=== PATIENT | female | born 1965 | race Caucasian/White ===

== ENCOUNTER 2020-04-22 10:48 | Observation (INO) | payer BC ==
[2020-04-22] MEDS ORDERED: METOCLOPRAMIDE HCL INJECTION 10 MG/2 ML VIAL IVPUSH ONE (11:08)
[2020-04-22] MEDS ORDERED: SODIUM CHLORIDE 0.9% 1000 ML INFUS.BAG IV ONE (11:08)
[2020-04-22] MEDS ORDERED: ACETAMINOPHEN 1000 MG/100 ML VIAL (NON FORMULARY) IVPB ONE (11:09)
[2020-04-22] MEDS ORDERED: DIPHTH,PERTUSS(ACELL),TET 0.5 ML DISP.SYRIN IM ONE (11:09)
--- NOTE | 2020-04-22 11:10 | PDOC ---
History of Present Illness - General Chief Complaint: Syncope/Near Syncope Stated Complaint: SYNCOPE, HEAD INJURY Time Seen by Provider: 04/22/20 10:50 - History of Present Illness Initial Comments: 04/22/20 11:10 54yo female with no pmhx and pshx of foot sx presents for eval of 2 syncopal episodes this am. Pt states she was in [place] this weekend and was in the sun all day yesterday. States she forgot her water bottle and wasn't drinking water all day. Pt also states she got sun [place] yesterday while at the beach. States s he felt fine last night, ate dinner and drank water. States this AM she was standing on the deck talking with her boyfriends son when she felt lightheaded and started to "see stars" and then passed out hitting her head on the metal railing of the deck. Per the son, who spoke with the nurse, she awoke after passing out and then again passed out in a chair - each episode was about 10-15 seconds. Pt denies cp/sob or palpitations prior to passing out or since. States she feels nauseated now. Denies meléndez. No neck pain. No blurred vision. No recent abd pain. No n/v/d. NO leg swelling. No urinary complaints. Pt traveled on April 12 from [place] to visit her boyfriend. Denies covid symptoms prior to travel or since arriving in [place]. No other complaints. Past History - Medical History Allergies/Adverse Reactions: Allergies Allergy/AdvReac Type Severity Reaction Status Date / Time No Known Allergies Allergy Verified 04/22/20 10:49 Home Medications: Ambulatory Orders NK [No Known Home Medication] 04/22/20 COPD: No Other medical history: denies - Psycho-Social/Smoking History Smoking History: Never smoked Have you smoked in the past 12 months: No Information on smoking cessation initiated: No - Substance Abuse Hx (Audit-C & DAST Scrn) How often the patient has a drink containing alcohol: Never Score: In Men: 4 or > Positive; In Women: 3 or > Positive: 0 Screen Result (Pos requires Nsg. Audit-10AR): Negative In the last yr the pt used illegal drug/Rx for NonMed reason: No Score: Yes response is considered Positive: 0 Screen Result (Positive result requires Nsg. DAST-10): Negative Review of Systems - Review of Systems Able to Perform ROS?: Yes Is the patient limited Lithuanian proficient: No Constitutional: No: Chills, Fever HEENTM: No: Eye Pain, Nose Congestion, Throat Pain, Mouth Swelling Respiratory: No: Cough, Shortness of Breath Cardiac (ROS): Yes: Lightheadedness, Syncope. No: Chest Pain, Edema, Palpitations ABD/GI: Yes: Nausea. No: Diarrhea, Vomiting, Abdominal cramping : No: Burning, Dysuria Musculoskeletal: No: Back Pain, Neck Pain Integumentary: Yes: Other (scalp lac) Neurological: Yes: Headache. No: Numbness, Paresthesia, Tingling, Ataxia All Other Systems: Reviewed and Negative *Physical Exam - Vital Signs Last Vital Signs Temp Pulse Resp BP Pulse Ox 97.6 F 75 18 127/63 99 04/22/20 10:48 04/22/20 10:48 04/22/20 10:48 04/22/20 10:48 04/22/20 10:48 - Physical Exam General Appearance: Yes: Nourished, Appropriately Dressed. No: Apparent Distress HEENT: positive: EOMI, MARGARITA, Normal Voice, TMs Normal, Pharynx Normal, Other (no septal hematoma or hemotypanium). negative: Pharyngeal Erythema, Tonsillar Exudate, Tonsillar Erythema, Nasal Congestion, Rhinorrhea Neck: positive: Supple. negative: Trachea midline, Decreased range of motion, Tender lateral, Tender midline Respiratory/Chest: positive: Lungs Clear, Normal Breath Sounds. negative: Chest Tender, Respiratory Distress Cardiovascular: positive: Regular Rhythm, Regular Rate, S1, S2. negative: Edema Gastrointestinal/Abdominal: positive: Soft. negative: Guarding, Rebound, Tenderness Musculoskeletal: positive: Normal Inspection, Other (small abrasion to back, no midline ttp, no stepoffs or deformities). negative: Decreased Range of Motion, Vertebral Tenderness Extremity: positive: Normal Capillary Refill, Normal Inspection. 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, Fully Oriented, Alert, Normal Mood/Affect, Normal Response, Motor Strength 5/5 Procedures - Laceration/Wound Repair Posterior Occipital Wound Length: to 2.5 cm Wound Explored: clean Wound's Depth, Shape: superficial Irrigated w/ Saline: Yes Wound Repaired With: Ulysses Number of Sutures: 1 Layer Closure: No Sterile Dressing Applied: Yes Progress: 04/22/20 12:59 pt tolerated the procedure well Heart Score/ECG Review - ECG Intrepretation Comment:: 04/22/20 11:59 sinus at 71, freq pvc, no acute st/t wave findings, nl axis, nl interval, trigeminy ED Treatment Course - LABORATORY CBC & Chemistry Diagram: 04/22/20 11:10 04/22/20 11:10 - RADIOLOGY Radiology Studies Ordered: Category Date Time Status HEAD CT WITHOUT CONTRAST [CT] Stat CT Scan 04/22/20 11:07 Ordered CHEST X-RAY PORTABLE* [RAD] Stat Radiology 04/22/20 11:07 Ordered Medical Decision Making - Medical Decision Making 04/22/20 11:59 a/p: 54yo female with no pmhx with 2 syncopal episodes today -suspect dehydration from sun exposure over the weekend -no cardiac complaints -closed head injury, no anticoags, but scalp lac, will send for head ct -will send labs, orthostatics, ekg -will monitor on tele 04/22/20 12:[address] neg labs reviewed, electrolytes and blood counts stable, trop neg ekg in trigeminy 04/22/20 12:02 prelim read cxr clear pt denies pleuritic cp or leg swelling, calf cramping 04/22/20 12:32 discussed labs and imaging results discussed trigeminy and syncope recommend obs overnight for syncope workup, tele monitoring and cards eval 04/22/20 12:33 pt states she is feeling better at this time 04/22/20 12:57 pt willing to stay for obs for syncope, will send covid microblog sent to [facility] lac repaired with 1 staple after being washed out, pt tolerated the procedure well, will apply dressing 04/22/20 13:19 case discussed with YOVANI Bartlett who accepts pt to service requests consult to Dr. Anthony peoples Discharge - Discharge Information Problems reviewed: Yes Clinical Impression/Diagnosis: Syncope, Trigeminy, Occipital scalp laceration Condition: Guarded - Admission Yes - Follow up/Referral - Patient Discharge Instructions - Post Discharge Activity
[2020-04-22 11:29] LABS: BASO % 0.8 % (0-2.0); EOS % 1.1 % (0-4.5); HEMATOCRIT 41.4 % (32.4-45.2); HEMOGLOBIN 14.2 GM/dl (10.7-15.3); LYMPH % 27.9 % (8-40); MCH 30.4 pg (25.7-33.7); MCHC 34.4 g/dl (32.0-36.0); MEAN CELL VOLUME 88.4 fl (80-96); MEAN PLT VOLUME 8.9 fl (7.5-11.1); MONO % 8.2 % (3.8-10.2); PLATELET COUNT 223 K/MM3 (134-434); RBC 4.68 M/mm3 (3.60-5.2); RDW 12.6 % (11.6-15.6)
[2020-04-22 11:37] LABS: ACTIVATED PTT 24.4 SECONDS (25.2-36.5)
[2020-04-22 11:39] LABS: ALBUMIN 4.3 g/dl (3.4-5.0); BILIRUBIN,TOTAL 1.1 mg/dl (0.2-1); CALCIUM 9.6 mg/dl (8.5-10); CREATININE 0.9 mg/dl (0.55-1.3); TOT PROT 6.9 g/dl (6.4-8.2)
[2020-04-22 11:41] LABS: INR 1.11 (0.82-1.09); PROTHROMBIN TIME (PATIENT) 12.4 SEC (10.2-13.0)
--- NOTE | 2020-04-22 12:10 | EKG ---
Test Reason : Blood Pressure : / mmHG Vent. Rate : 071 BPM Atrial Rate : 071 BPM P-R Int : 134 ms QRS Dur : 086 ms QT Int : 414 ms P-R-T Axes : 038 060 071 degrees QTc Int : 449 ms SINUS RHYTHM WITH FREQUENT PREMATURE VENTRICULAR COMPLEXES OTHERWISE NORMAL ECG NO PREVIOUS ECGS AVAILABLE Confirmed by Mitesh Pa ([id number]) on 04/22/2020 12:10:21 PM Referred By: MD PRINGLE Confirmed By:Mitesh Pa
--- NOTE | 2020-04-22 14:18 | CON.CARD ---
Cardiology Consult (text) - Consultation Consultation Note: cc: syncope hpi: 54 f no pmhx here with syncope. No hx hrt dz or syncope. Very active, exercises often w/o anginal sxs or dizziness. Over weekend was at beach in sun for long time, didn't drink much fluids, had a sunburn as well. This AM was standing outside on patio and felt lightheaded and had witnessed LOC for about 15 secs. Was brought to a chair and had another similar episode. No other sxs. No cp sob palps pnd orthopnea le edema. Feels well now. pmh: per hpi psh: none social: no tob fam: no premature cad, scd ros: per hpi; all others nl meds: none pe: Vital Signs Period Temp Pulse Resp BP Sys/Vaughan Pulse Ox Last 24 Hr 97.6 F 74-84 18-18 123-141/54-81 99-99 nad no jvd rrr s1s2 no mrg cta bl nl eff aao3 no le e/c/c abd nt nd pos bs no jaundice diaphoresis pos dp pt no carotid bruits Laboratory Last Values WBC 6.0 K/mm3 (4.0-10.8) 04/22/20 11:10 RBC 4.68 M/mm3 (3.60-5.2) 04/22/20 11:10 Hgb 14.2 GM/dl (10.7-15.3) 04/22/20 11:10 Hct 41.4 % (32.4-45.2) 04/22/20 11:10 MCV 88.4 fl (80-96) 04/22/20 11:10 MCH 30.4 pg (25.7-33.7) 04/22/20 11:10 MCHC 34.4 g/dl (32.0-36.0) 04/22/20 11:10 RDW 12.6 % (11.6-15.6) 04/22/20 11:10 Plt Count 223 K/MM3 (134-434) 04/22/20 11:10 MPV 8.9 fl (7.5-11.1) 04/22/20 11:10 Absolute Neuts (auto) 3.7 K/mm3 04/22/20 11:10 Neutrophils % 62.0 % (42.8-82.8) 04/22/20 11:10 Lymphocytes % 27.9 % (8-40) 04/22/20 11:10 Monocytes % 8.2 % (3.8-10.2) 04/22/20 11:10 Eosinophils % 1.1 % (0-4.5) 04/22/20 11:10 Basophils % 0.8 % (0-2.0) 04/22/20 11:10 PT with INR 12.4 SEC (10.2-13.0) 04/22/20 11:10 INR 1.11 (0.82-1.09) 04/22/20 11:10 PTT (Actin FS) 24.4 SECONDS (25.2-36.5) L 04/22/20 11:10 Sodium 141 mmol/L (136-145) 04/22/20 11:10 Potassium 4.0 mmol/L (3.5-5.1) 04/22/20 11:10 Chloride 103 mmol/L (98-107) 04/22/20 11:10 Carbon Dioxide 26 mmol/L (21-32) 04/22/20 11:10 Anion Gap 12 MMOL/L (8-16) 04/22/20 11:10 BUN 18.0 mg/dl (7-18) 04/22/20 11:10 Creatinine 0.9 mg/dl (0.55-1.3) 04/22/20 11:10 Est GFR (CKD-EPI)AfAm 82.84 04/22/20 11:10 Est GFR (CKD-EPI)NonAf 71.48 04/22/20 11:10 Random Glucose 118 mg/dl (74-106) H 04/22/20 11:10 Calcium 9.6 mg/dl (8.5-10) 04/22/20 11:10 Total Bilirubin 1.1 mg/dl (0.2-1) H 04/22/20 11:10 AST 24 U/L (15-37) 04/22/20 11:10 ALT 20 U/L (13-61) 04/22/20 11:10 Alkaline Phosphatase 72 U/L (45-117) 04/22/20 11:10 Creatine Kinase 62 U/L (26-192) 04/22/20 11:10 Troponin I < 0.03 ng/ml (0.00-0.05) 04/22/20 11:10 Total Protein 6.9 g/dl (6.4-8.2) 04/22/20 11:10 Albumin 4.3 g/dl (3.4-5.0) 04/22/20 11:10 ecg: sr nl intervals no ischemic changes, occ isolated pvcs cxr: clear lungs tele: sr, occ isolated pvcs a/p: 54 f no pmhx here with syncope. syncope: -likely vasovagal -no signs acs, chf, arrhythmia -ecg/tele with sr, pvcs, likely benign -would monitor on tele 24 hrs, check echo, check ortho vitals, finish janice. if all benign and no recurrence then would be ok for dc from cardiac pov with outpt f/u.
[2020-04-22 15:23] VITALS: BMI 22.3
--- NOTE | 2020-04-22 15:31 | HP ---
CHIEF COMPLAINT: Syncope x 2 PCP: Dr. Silvana Franklin [phone] HISTORY OF PRESENT ILLNESS: 54 year-old female with no significant PMH, presents for eval of 2 syncopal episodes this am. Pt states she was in [place] this weekend and was in the sun all day yesterday. States she forgot her water bottle and wasn't drinking water all day. Pt also states she got sun burned yesterday while at the beach. States she felt fine last night, ate dinner and drank water. States this AM she was standing on the deck talking with her boyfriends son when she felt lightheaded and started to "see stars" and then passed out hitting her head on the metal railing of the deck. Per the son, who spoke with the nurse, she awoke after passing out and then again passed out in a chair - each episode was about 10-15 seconds. Pt denies cp/sob or palpitations prior to passing out or since. States she feels nauseated now. Denies meléndez. No neck pain. No blurred vision. No recent abd pain. No n/v/d. NO leg swelling. No urinary complaints. Pt traveled on April 12 from [place] to visit her boyfriend. Denies covid symptoms prior to travel or since arriving in [place]. No other complaints. ER course was notable for: (1) Head laceration repair 1 staple Recent Travel: Arrived in [place] from [place] on 04/12/20 to visit boyfriend PAST MEDICAL HISTORY: PAST SURGICAL HISTORY: Foot surgery Social History: lives in [place], exercises frequently Smoking: never Alcohol: Drugs: Allergies No Known Allergies Allergy (Verified 04/22/20 10:49) HOME MEDICATIONS: Home Medications Medication Instructions Recorded NK [No Known Home Medication] 04/22/20 REVIEW OF SYSTEMS CONSTITUTIONAL: Absent: fever, chills, diaphoresis, generalized weakness, malaise, loss of appetite, weight change HEENT: Absent: rhinorrhea, nasal congestion, throat pain, throat swelling, difficulty swallowing, mouth swelling, ear pain, eye pain, visual changes CARDIOVASCULAR: Absent: chest pain, syncope, palpitations, irregular heart rate, lightheadedness, peripheral edema RESPIRATORY: Absent: cough, shortness of breath, dyspnea with exertion, orthopnea, wheezing, stridor, hemoptysis GASTROINTESTINAL: Absent: abdominal pain, abdominal distension, nausea, vomiting, diarrhea, constipation, melena, hematochezia GENITOURINARY: Absent: dysuria, frequency, urgency, hesitancy, hematuria, flank pain, genital pain MUSCULOSKELETAL: Absent: myalgia, arthralgia, joint swelling, back pain, neck pain SKIN: Absent: rash, itching, pallor HEMATOLOGIC/IMMUNOLOGIC: Absent: easy bleeding, easy bruising, lymphadenopathy, frequent infections ENDOCRINE: Absent: unexplained weight gain, unexplained weight loss, heat intolerance, cold intolerance NEUROLOGIC: Absent: headache, focal weakness or paresthesias, dizziness, unsteady gait, seizure, mental status changes, bladder or bowel incontinence PSYCHIATRIC: Absent: anxiety, depression, suicidal or homicidal ideation, hallucinations. PHYSICAL EXAMINATION Vital Signs - 24 hr 04/22/20 04/22/20 04/22/20 10:48 11:05 11:10 Temperature 97.6 F Pulse Rate 75 Pulse Rate [ Left Apical] Pulse Rate [ 74 Sitting] Pulse Rate [ 84 Standing] Respiratory 18 Rate Blood Pressure 127/63 Blood Pressure [Right Arm] Blood Pressure 123/78 [Sitting] Blood Pressure 141/81 [Standing] O2 Sat by Pulse 99 Oximetry (%) 04/22/20 04/22/20 04/22/20 13:01 14:40 15:07 Temperature 97.8 F 97.8 F Pulse Rate 65 Pulse Rate [ 77 73 Left Apical] Pulse Rate [ Sitting] Pulse Rate [ Standing] Respiratory 18 18 18 Rate Blood Pressure 111/50 L Blood Pressure 126/54 L 127/71 [Right Arm] Blood Pressure [Sitting] Blood Pressure [Standing] O2 Sat by Pulse 99 98 Oximetry (%) GENERAL: Awake, alert, and fully oriented, in no acute distress. HEAD: Small lac posterior scalp, 1 staple closure, no bleeding EYES: Pupils equal, round and reactive to light, extraocular movements intact, sclera anicteric, conjunctiva clear. No lid lag. LUNGS: Breath sounds equal, clear to auscultation bilaterally. No wheezes, and no crackles. No accessory muscle use. HEART: Regular rate and rhythm, normal ABDOMEN: Soft, nontender, not distended UPPER EXTREMITIES: 2+ pulses, warm, well-perfused. No cyanosis. No clubbing. No peripheral edema. LOWER EXTREMITIES: 2+ pulses, warm, well-perfused. No calf tenderness. No peripheral edema. NEUROLOGICAL: Cranial nerves II-XII intact. Normal speech. Normal gait. PSYCHIATRIC: Cooperative. Good eye contact. Appropriate mood and affect. SKIN: Mild sunburn on shoulders and legs Laboratory Results - last 24 hr 04/22/20 04/22/20 04/22/20 11:10 11:10 11:10 WBC 6.0 RBC 4.68 Hgb 14.2 Hct 41.4 MCV 88.4 MCH 30.4 MCHC 34.4 RDW 12.6 Plt Count 223 MPV 8.9 Absolute Neuts (auto) 3.7 Neutrophils % 62.0 Lymphocytes % 27.9 Monocytes % 8.2 Eosinophils % 1.1 Basophils % 0.8 PT with INR 12.4 INR 1.11 PTT (Actin FS) 24.4 L Sodium 141 Potassium 4.0 Chloride 103 Carbon Dioxide 26 Anion Gap 12 BUN 18.0 Creatinine 0.9 Est GFR (CKD-EPI)AfAm 82.84 Est GFR (CKD-EPI)NonAf 71.48 Random Glucose 118 H Calcium 9.6 Total Bilirubin 1.1 H AST 24 ALT 20 Alkaline Phosphatase 72 Creatine Kinase 62 Troponin I Total Protein 6.9 Albumin 4.3 04/22/20 11:10 WBC RBC Hgb Hct MCV MCH MCHC RDW Plt Count MPV Absolute Neuts (auto) Neutrophils % Lymphocytes % Monocytes % Eosinophils % Basophils % PT with INR INR PTT (Actin FS) Sodium Potassium Chloride Carbon Dioxide Anion Gap BUN Creatinine Est GFR (CKD-EPI)AfAm Est GFR (CKD-EPI)NonAf Random Glucose Calcium Total Bilirubin AST ALT Alkaline Phosphatase Creatine Kinase Troponin I < 0.03 Total Protein Albumin ASSESSMENT/PLAN: 54 year-old female with no significant PMH admitted for syncope x 2 episodes. Syncope --troponin neg x 1, two pending --ECG: no acute ischemia --telemetry monitoring --echo pending --US carotids pending --orthostatics FEN Fluids: NS@100mL/hr Electrolytes: replete as indicated Nutrition: regular diet DVT prophylaxis: subq lovenox Dispo: observation. Full code. Visit type - Emergency Visit Emergency Visit: Yes ED Registration Date: 04/22/20 Care time: The patient presented to the Emergency Department on the above date and was hospitalized for further evaluation of their emergent condition. - New Patient This patient is new to me today: Yes Date on this admission: 04/23/20 - Critical Care Critical Care patient: No
[2020-04-22] MEDS ORDERED: SODIUM CHLORIDE 1,000 ML IV SCH (15:45)
[2020-04-23 06:57] VITALS: BP 110/62
[2020-04-23 06:59] VITALS: PULSE 61; TEMP 97.8
[2020-04-23 08:13] LABS: CALCIUM 8.7 mg/dl (8.5-10); CREATININE 0.7 mg/dl (0.55-1.3); POTASSIUM 4.2 mmol/L (3.5-5.1)
[2020-04-23] MEDS ORDERED: ENOXAPARIN NA (PORCINE) 40 MG/0.4 ML DISP.SYRIN SQ SCH (10:00)
[2020-04-23] MEDS ORDERED: SILVER SULFADIAZINE 1% TOP CREAM 50 GM JAR TP SCH (10:00)
--- NOTE | 2020-04-23 10:51 | PN ---
Progress Note (short form) - Note Progress Note: s: no chest pain, palps, dizziness, dyspnea. feeling better Current Medications Generic Name Dose Route Start Last Admin Trade Name Trudy PRN Reason Stop Dose Admin Enoxaparin Sodium 40 mg 04/23/20 10:00 Lovenox - SQ DAILY YANNICK Sodium Chloride 1,000 mls @ 100 mls/hr 04/22/20 15:45 04/22/20 16:45 Normal Saline - IV 100 mls/hr ASDIR YANNICK Administration Silver Sulfadiazine 1 applic 04/23/20 10:00 Silvadene - TP DAILY YANNICK Vital Signs Period Temp Pulse Resp BP Sys/Vaughan Pulse Ox Last 24 Hr 97.3 F-97.8 F 59-84 16-18 95-141/50-81 98-100 nad no jvd rrr s1s2 no mrg cta bl nl eff aao3 no le e/c/c abd nt nd pos bs no jaundice diaphoresis pos dp pt no carotid bruits ecg: sr nl intervals no ischemic changes, occ isolated pvcs cxr: clear lungs tele: sr, occ isolated pvcs a/p: 54 f no pmhx here with syncope. syncope: -likely vasovagal -no signs acs, chf, arrhythmia -ecg/tele with sr, pvcs, likely benign -echo pending. if benign findings, no further cardiac workup
--- NOTE | 2020-04-23 12:30 | ECHO ---
Version: 1 Name: ARMINDA PARTIDA Exam: Adult Echocardiogram Study Date: 04/23/2020, 8:50 AM Age: 54 Years MMode/2D Measurements & Calculations IVSd: 0.77 cm LVIDs: 3.2 cm LVIDd: 4.7 cm LVPWd: 0.74 cm ACS: 1.63 cm Ao root diam: 2.6 cm LVOT diam: 1.89 cm LA dimension: 3.2 cm Doppler Measurements & Calculations MV E max china: 89.7 cm/sec MV A max china: 73.2 cm/sec MV E/A: 1.23 Ao max P.4 mmHg ERI(I,D): 2.19 cm Ao mean P.1 mmHg LV V1 mean: 70.4 cm/sec Ao V2 max: 153.0 cm/sec LV V1 mean P.45 mmHg PI end-d china: 68.0 cm/sec TR max china: 199.5 cm/sec TR max P.2 mmHg Procedure A complete two-dimensional transthoracic echocardiogram was performed (2D, M-mode, Doppler and color flow Doppler). Left Ventricle The left ventricular size, thickness and function are normal. Ejection Fraction = 60%. Left Ventricu lar Filling pattern is normal for age. Right Ventricle The right ventricle is normal in size and function. Atria Normal left and right atrial size and function. Mitral Valve The mitral valve is normal in structure and function. Tricuspid Valve The tricuspid valve is normal in structure and function. There is mild tricuspid regurgitation. Righ t ventricular systolic pressure is 33 mmhg. Doppler findings do not suggest pulmonary hypertension. Aortic Valve The aortic valve is normal in structure and function. No hemodynamically significant valvular aortic stenosis. Pulmonic Valve The pulmonic valve is not well visualized. Great Vessels The aortic root is normal size. Pericardium/Pleura There is no pericardial effusion. Summary Statements The left ventricular size, thickness and function are normal The right ventricle is normal in size and function. No hemodynamically significant valvular aortic stenosis. Jacques Dumont 04/23/2020, 12:29 PM Ordering Physician: Fletcher Shoemaker Referring Physician: FLETCHER SHOEMAKER Performed By: Georgina Reyes
--- NOTE | 2020-04-23 16:09 | DS ---
Physical Exam: SUBJECTIVE: Patient seen and examined OBJECTIVE: Vital Signs Period Temp Pulse Resp BP Sys/Vaughan Pulse Ox Last 24 Hr 97.3 F-97.8 F 59-83 16-16 95-110/52-66 100 PHYSICAL EXAM GENERAL: The patient is awake, alert, and fully oriented, in no acute distress. HEAD: Normal with no signs of trauma. EYES: PERRL, extraocular movements intact, sclera anicteric, conjunctiva clear. ENT: Ears normal, nares patent, oropharynx clear without exudates, moist mucous membranes. NECK: Trachea midline, full range of motion, supple. LUNGS: Breath sounds equal, clear to auscultation bilaterally, no wheezes, no crackles, no accessory muscle use. HEART: Regular rate and rhythm, S1, S2 without murmur, rub or gallop. ABDOMEN: Soft, nontender, nondistended, normoactive bowel sounds, no guarding, no rebound, no hepatosplenomegaly, no masses. EXTREMITIES: 2+ pulses, warm, well-perfused, no edema. NEUROLOGICAL: Cranial nerves II through XII grossly intact. Normal speech, gait not observed. PSYCH: Normal mood, normal affect. SKIN: Warm, dry, normal turgor, no rashes or lesions noted. LABS Laboratory Results - last 24 hr 04/22/20 04/22/20 04/22/20 18:00 18:45 18:45 Sodium Potassium Chloride Carbon Dioxide Anion Gap BUN Creatinine Est GFR (CKD-EPI)AfAm Est GFR (CKD-EPI)NonAf Random Glucose Calcium Magnesium Troponin I < 0.03 TSH Urine Color Yellow Urine Appearance Clear Urine pH 6.0 Urine Protein Negative Urine Glucose (UA) Negative Urine Ketones Negative Urine Blood Negative Urine Nitrite Negative Urine Bilirubin Negative Urine Urobilinogen 0.2 Ur Leukocyte Esterase Negative Urine HCG, Qual Negative 04/23/20 04/23/20 00:00 07:29 Sodium 142 Potassium 4.2 Chloride 109 H Carbon Dioxide 25 Anion Gap 8 BUN 16.0 Creatinine 0.7 Est GFR (CKD-EPI)AfAm 112.26 Est GFR (CKD-EPI)NonAf 96.86 Random Glucose 93 Calcium 8.7 Magnesium 2.0 Troponin I < 0.02 TSH 1.33 Urine Color Urine Appearance Urine pH Urine Protein Urine Glucose (UA) Urine Ketones Urine Blood Urine Nitrite Urine Bilirubin Urine Urobilinogen Ur Leukocyte Esterase Urine HCG, Qual HOSPITAL COURSE: Date of Admission:04/22/20 Date of Discharge: 04/23/20 Pre hospital course 54 year-old female with no significant PMH, presents for eval of 2 syncopal episodes this am. Pt states she was in [place] this weekend and was in the sun all day yesterday. States she forgot her water bottle and wasn't drinking water all day. Pt also states she got sun burned yesterday while at the beach. States she felt fine last night, ate dinner and drank water. States this AM she was standing on the deck talking with her boyfriends son when she felt lightheaded and started to "see stars" and then passed out hitting her head on the metal railing of the deck. Per the son, who spoke with the nurse, she awoke after passing out and then again passed out in a chair - each episode was about 10-15 seconds. Pt denies cp/sob or palpitations prior to passing out or since. States she feels nauseated now. Denies meléndez. No neck pain. No blurred vision. No recent abd pain. No n/v/d. NO leg swelling. No urinary complaints. Pt traveled on April 12 from [place] to visit her boyfriend. Denies covid symptoms prior to travel or since arriving in [place]. No other complaints. ER course (1) Head laceration repair 1 staple (2) DPT shot (3) NS x 1L Subsequent hospital course 54 year-old female with no significant PMH admitted for syncope x 2 episodes. Syncope --troponin neg x 3 --ECG: no acute ischemia --CT head unremarkable --US carotids: no significant stenosis --Echo: LV normal, EF 60%, RV normal, mild TR --telemetry monitoring --likely vasovagal, clinically improved after IV hydration, not orthostatic x 2 --seen and evaluated by cardiology, no further inpatient workup Minutes to complete discharge: 35 Discharge Summary Problems reviewed: Yes Reason For Visit: SYNCOPE, LACERATION OF OCCIPITAL SCALP/TRIGEMINY Condition: Improved - Instructions Diet, Activity, Other Instructions: Stay well-hydrated in the hot weather, drink plenty of fluids Avoid the sun. You may continue to apply a THIN layer of silver sulfadine to your sunburned areas once a day for 3 more days. Then stop. Your COVID test is still pending. Please call [phone] ([facility], 2d floor) in 24 hours for results. Return to the emergency department for any new or worsening symptoms. Referrals: ON STAFF,NOT [Primary Care Provider] - Disposition: HOME - Home Medications Comprehensive Discharge Medication List: Ambulatory Orders Silver Sulfadiazine 1% Top Cr [Silvadene -] 1 applic TP DAILY jar 04/23/20 This patient is new to me today: No Emergency Visit: Yes ED Registration Date: 04/22/20 Care time: The patient presented to the Emergency Department on the above date and was hospitalized for further evaluation of their emergent condition. Critical Care patient: No - Discharge Referral Referred to [facility] Med [facility].C[facility] No
== END 2020-04-23 13:15 | disposition home or self-care (01) ==
LOC: SUPCPDRO 10:48 → FER 10:48 → FM/S 13:20 → INTOOBSV 13:20
PROVIDERS: ADMIT Internal Medicine; ATTEND Nurse Practitioner Acute Care
PROC: 0HQ0XZZ Repair Scalp Skin, External Approach (ICD-10-PCS; principal; 2020-04-22)
PROC: 3E0234Z Introduction of Serum, Toxoid and Vaccine into Muscle, Percutaneous Approach (ICD-10-PCS; 2020-04-22)
PROC: 3E033NZ Introduction of Analgesics, Hypnotics, Sedatives into Peripheral Vein, Percutaneous Approach (ICD-10-PCS; 2020-04-22)
PROC: 3E023GC Introduction of Other Therapeutic Substance into Muscle, Percutaneous Approach (ICD-10-PCS; 2020-04-22)
PROC: 3E0337Z Introduction of Electrolytic and Water Balance Substance into Peripheral Vein, Percutaneous Approach (ICD-10-PCS; 2020-04-22)
DX: R55 Syncope and collapse (principal); S01.91XA Laceration without foreign body of unspecified part of head, initial encounter; R00.8 Other abnormalities of heart beat; W18.39XA Other fall on same level, initial encounter; Y93.89 Activity, other specified; Y92.89 Other specified places as the place of occurrence of the external cause
CPT/HCPCS: 12001-25; 36415; 70450-TC; 71045-TC-FY; 80048; 80053; 81003; 82550; 83735; 84443; 84484; 84703; 85025; 85610; 85730; 87077; 87086; 90471; 90715; 93005; 93306-TC; 93880-TC; 96372; 96374; 99285-25; G0378; J0131; U0003

== ENCOUNTER 2023-09-19 15:27 | Emergency (ER) | payer BC ==
[2023-09-19] MEDS ORDERED: LIDOCAINE 5% TOPICAL PATCH TP ONE (15:33)
[2023-09-19] MEDS ORDERED: KETOROLAC TROMETHAMINE 15 MG/ML VIAL IVPUSH ONE (15:33)
[2023-09-19] MEDS ORDERED: ACETAMINOPHEN 1000 MG/100 ML BAG IVPB ONE (15:33)
[2023-09-19 15:55] VITALS: TEMP 97.8; BMI 21.5
[2023-09-19] MEDS ORDERED: ACETAMINOPHEN INJECTION 100 ML IVPB ONE (15:57)
[2023-09-19 16:38] LABS: ALBUMIN 4.8 g/dl (3.4-5.0); BILIRUBIN,TOTAL 0.7 mg/dl (0.2-1); CREATININE 0.8 mg/dl (0.6-1.3); MAGNESIUM 2.1 mg/dL (1.8-2.4); POTASSIUM 4.1 mmol/L (3.5-5.1); TOT PROT 7.2 g/dl (6.4-8.2)
[2023-09-19 16:50] LABS: HEMATOCRIT 41.8 % (32.4-45.2); HEMOGLOBIN 14.3 G/dL (10.7-15.3); MCH 31.3 pg (25.7-33.7); MCHC 34.2 g/dl (32.0-36.0); MEAN CELL VOLUME 91.6 fl (80-96); MEAN PLT VOLUME 9.2 fl (7.5-11.1); PLATELET COUNT 234.1 10^3/uL (134-434); RBC 4.56 10^6/uL (3.60-5.2); RDW 14.4 % (11.6-15.6); WHITE BLOOD COUNT 7.3 10^3/uL (4.0-10.8)
[2023-09-19 16:51] LABS: INR 1.03 (0.83-1.09); PROTHROMBIN TIME (PATIENT) 11.9 SEC (9.7-13.0)
[2023-09-19] MEDS ORDERED: KETOROLAC TROMETHAMINE 15 MG/ML VIAL ONE (17:25)
[2023-09-19 18:55] LABS: PLATELET ESTIMATE ADEQUATE
[2023-09-19 18:59] VITALS: BP 113/85; PULSE 54; RESP 14
[2023-09-19] MEDS ORDERED: LIDOCAINE PATCH REMOVAL MC SCH (22:00)
== END 2023-09-19 19:57 | disposition home or self-care (01) ==
LOC: FER 15:27
PROC: 3E033NZ Introduction of Analgesics, Hypnotics, Sedatives into Peripheral Vein, Percutaneous Approach (ICD-10-PCS; principal; 2023-09-19)
PROC: 3E033GC Introduction of Other Therapeutic Substance into Peripheral Vein, Percutaneous Approach (ICD-10-PCS; 2023-09-19)
DX: R07.89 Other chest pain (principal); I49.3 Ventricular premature depolarization
CPT/HCPCS: 36415; 71045-TC-FY; 80053; 83735; 84484; 85027; 85379; 85610; 85730; 93005; 99285-25